=== PATIENT | female | born 1960 | race Caucasian/White ===

== ENCOUNTER 2020-02-27 19:12 | Emergency (ER) | payer BC, SELFPAY ==
[2020-02-27 19:29] VITALS: BP 182/100; PULSE 65; RESP 14; TEMP 36.8; O2SAT 98; BMI 26.6
--- NOTE | 2020-02-27 19:33 | XR_ITS ---
WS: [id number] XR ankle RT min 3V* [id number] REASON FOR EXAM: INJURY FINDINGS: Ankle mortise is preserved. No fracture or other focal bony abnormality. Soft tissue swelling around the ankle, most notably the lateral malleolus. No radiopaque foreign body . XR/XR ankle RT min 3V* [id number] IMPRESSION: No fracture or dislocation identified.
--- NOTE | 2020-02-27 19:33 | XR_ITS ---
WS: [id number] XR foot RT min 3V* [id number] REASON FOR EXAM: INJURY FINDINGS: Joint spaces of the forefoot, midfoot, and hindfoot are well preserved. No fracture or other focal bony abnormality is identified. There is soft tissue swelling around the ankle and dorsum of the foot. No radiopaque foreign body. XR/XR foot RT min 3V* [id number] IMPRESSION: Soft tissue swelling. No fracture or dislocation.
--- NOTE | 2020-02-27 19:53 | W.ED.EXTPRO ---
HPI - Extremity Problem General: Chief complaint: Extremity Injury, Lower Stated complaint: r ankle injury Time Seen by Provider: 02/27/20 19:53 History of Present Illness: HPI Narrative: Patient is a 59-year-old female comes to the ED with right ankle injury. Patient says she was walking outside and stepped into a hole and twisted ankle. She now has acute right ankle pain and swelling. She says it hurts to put any weight on it. She rates her pain a 9 out of 10. Associated symptoms: Deny chest pain, fever(s) or rash Review of Systems Const: Denies: fever(s), chills or fatigue Eyes: Denies: change in vision or eye discomfort ENMT: Denies: throat pain, odynophagia, nasal discharge or nasal congestion Card: Denies: chest pain, palpitations, edema, swelling of feet/ankles, dyspnea on exertion or orthopnea Resp: Denies: dyspnea, productive cough or non-productive cough GI: Denies: abdominal pain, nausea, vomiting, diarrhea, constipation or hematochezia : Denies: flank pain, dysuria or hematuria Musc: Reports: extremity pain (Right ankle) and extremity swelling (Right ankle); Denies: neck pain or back pain Skin/Breast: Denies: rash or new lesions Neuro: Denies: headache(s), numbness in extremities or weakness in extremities PFSH ED PFSH: Medical History Malignant hypertension SVT (supraventricular tachycardia) Physical Exam Const: COMMON NORMALS: no acute distress, patient oriented x3 and alert GENERAL APPEARANCE: cooperative; not comfortable (Uncomfortable due to pain) HENMT: COMMON NORMALS: normocephalic HEAD & SCALP: normocephalic MOUTH: Normal oral and palatal mucosa present THROAT: posterior oropharynx normal and uvula midline Neck/C-Spine: COMMON NORMALS: supple GENERAL: Yes normal visual inspection Resp: COMMON NORMALS: normal respiratory effort, No retractions, No use of accessory muscles and clear to auscultation bilaterally AUSCULTATION: clear to auscultation bilaterally Cardio: COMMON NORMALS: regular rate, regular rhythm, S1 normal heart sound present, S2 normal heart sound present, No gallops present (Cardio), No clicks present (Cardio), No murmurs present (Cardio) and Peripheral pulses 2+ throughout RATE: regular rate RHYTHM: regular rhythm HEART SOUNDS: S1 normal heart sound present and S2 normal heart sound present PERIPHERAL PULSES: Peripheral pulses 2+ throughout GI: COMMON NORMALS: Normal to inspection, nondistended, normoactive bowel sounds present, Soft to palpation, non-tender and no masses PALPATION: Yes Soft to palpation : COMMON NORMALS: Yes no CVA tenderness BLADDER/KIDNEY EXAM: Yes no CVA tenderness Back/Pelvis: COMMON NORMALS: no CVA tenderness Extremity: NARRATIVE EXTREMITY EXAM: Patient's right ankle has ecchymosis and edema over lateral malleolus. Tenderness over lateral malleolus. Range of motion limited due to pain. Pedal pulse 2+ and sensation intact. GENERAL: Yes normal exam except as noted Neuro: COMMON NORMALS: patient oriented x3 and moves all extremities SENSORIUM/ORIENTATION: Yes alert Skin: GENERAL SKIN EXAM: dry skin Course Vital Signs: Vital signs: Vital Signs Temperature 98.3 F 02/27/20 20:16 Pulse Rate 65 02/27/20 21:30 Respiratory Rate 16 02/27/20 20:46 Blood Pressure 189/99 02/27/20 21:30 Pulse Oximetry 96 02/27/20 21:30 MDM - Extremity (Nontraumatic) MDM Narrative: Medical decision making narrative: Patient is a 59-year-old female comes to the ED with right ankle injury. Exam shows swelling and ecchymosis of the right ankle and tenderness upon palpation of the lateral malleolus. Neurovascular intact distally. X-ray of right ankle shows distal fibula fracture nondisplaced. An order was placed with case management for patient be referred to orthopedic doctor. Patient was put in a posterior leg splint with stirrup and given crutches. Discharged with a prescription of hydrocodone. No weightbearing and patient told that case management will contact them to set up an appointment with Ortho. Return to ED precautions given. Patient is to agree with plan. Imaging Data^: Xray Ortho: Attestation: I personally reviewed and interpreted this imaging study as follows: My impression: Right ankle x-ray shows distal fibula fracture nondisplaced. Discharge Plan Discharge Patient Disposition: Home Clinical Impression: Fracture of distal end of fibula Qualifiers: Encounter type: initial encounter Fracture type: closed Fracture morphology: unspecified fracture morphology Laterality: right Qualified Code(s): S82.831A - Other fracture of upper and lower end of right fibula, initial encounter for closed fracture Condition: Stable Prescriptions: No Action Premarin 1.25 mg tablet 1.25 mg PO .every other day RF: 0 gabapentin 300 mg capsule 300 mg PO TID RF: 0 tizanidine 4 mg tablet 4 mg PO QID RF: 0 zolpidem 10 mg tablet 10 mg PO .bedtime RF: 0 clonazepam 1 mg tablet 1 mg PO BID PRN (Reason: anxixety) RF: 0 fluoxetine 20 mg capsule 20 mg PO BID RF: 0 triamterene-hydrochlorothiazid 37.5-25 mg tablet 1 tab PO DAILY Qty: 30 RF: 5 carvedilol 12.5 mg tablet 12.5 mg PO BID Qty: 180 RF: 3 Discharge Orders: Discharge Order (Routine); Ordered 02/27/20 Ordered By: Eben Mak Referrals: Jaqui Vogel APN [Primary Care Provider] - Discharge Diet: Regular Discharge Activity: Limit activity as instructed and Use walker/crutches as instructed Patient Instructions: Ankle Fracture (ED) Activity Restrictions/Additional Instructions: Follow-up with medical provider as directed. Case management will be contacting you in the next several days to set up an appoint with orthopedic doctor. Wear splint, no weightbearing on right foot leg and use crutches to help ambulate. Ice rest and elevate. Take medications as prescribed. Return to the ER or your medical provider if condition worsens. Please read and understand discharge instructions. If any questions, please ask. Discharge Date/Time: 02/27/20 21:38 Coding Level of Care Code ED Procurement Officer for Ann Marie Fwbrigitte Exam Comprehensive
[2020-02-27 20:16] VITALS: BP 186/103; PULSE 65; TEMP 36.8; O2SAT 96
[2020-02-27 20:46] VITALS: RESP 16
[2020-02-27] MEDS: morphine 4 mg/mL SDV 1 mL IM (20:46)
[2020-02-27] MEDS: HYDROcodone-acetaminophen 7.5-325 mg Tablet 2 TAB PO (21:28)
[2020-02-27 21:30] VITALS: BP 189/99; PULSE 65; O2SAT 96
--- NOTE | 2020-02-28 09:47 | DCPLANNER ---
space systems operations manager had message to schedule a follow up appointment for patient with ortho. space systems operations manager called the ortho clinic, spoke with Pat, gave clinic patients information. space systems operations manager was told that patients information would be printed and reviewed. Clinic will call patient with appointment information.
--- NOTE | 2020-03-02 15:49 | DCPLANNER ---
Patient had a follow up appointment for patient with ortho on 03.02.20 - patient did attend appointment.
== END 2020-02-27 21:38 | disposition home or self-care (01) ==
PROVIDERS: Emergency Provider Physician Assistant; PCP Nurse Practitioner Family
DX: S82.831A Other fracture of upper and lower end of right fibula, initial encounter for closed fracture (principal); I10 Essential (primary) hypertension; X50.1XXA Overexertion from prolonged static or awkward postures, initial encounter
CPT/HCPCS: 12345; 29515; 73610; 73630; 96372; 99281; 99283; E0114; J2270

== ENCOUNTER 2020-03-02 13:29 | Outpatient (CLI) | payer BC, SELFPAY | END 2020-03-02 13:30 | disposition home or self-care (01) | LOC: SPT 13:30 | PROVIDERS: PCP Nurse Practitioner Family; Visit Provider Specialist | DX: Z46.89 Encounter for fitting and adjustment of other specified devices (principal); S93.401D Sprain of unspecified ligament of right ankle, subsequent encounter; X58.XXXD Exposure to other specified factors, subsequent encounter | CPT/HCPCS: 97760; L4361 ==